=== PATIENT | male | born 1985 | race African-American/Black ===

== ENCOUNTER → 2022-06-07 10:30 | Outpatient (CLI) | payer MEDICAID, SELFPAY | PROVIDERS: PCP Emergency Medicine; Visit Provider Surgery | DX: U07.1 COVID-19 (principal) | CPT/HCPCS: C9803; U0003; U0005 ==

== ENCOUNTER 2022-07-21 10:36 | Day surgery (SDC) | payer MEDICAID, SELFPAY ==
[2022-07-21] VITALS (7 sets, daily range): BP systolic 104–136; BP diastolic 65–84; PULSE 67–101; RESP 18; TEMP 36.1–36.6; O2SAT 94–98; BMI 29.9
[2022-07-21 11:17] LABS: POC Glucose,Bedside 85 (70-110)
--- NOTE | 2022-07-21 11:17 | EXP.ANES.CKL ---
[facility] Medical History Constipation Diabetes mellitus, type 2 Schizophrenia Surgical History (Updated 07/21/22 @ 11:00 by Ambar Ramirez RN) No significant past surgical history Family History Other No significant family history Social History (Updated 07/21/22 @ 11:02 by Ambar Ramirez RN) Smoking Status: Current some day smoker alcohol intake: never substance use type: denies use current occupational status: disabled Travel in the last 8 weeks: None detention: Yes [facility] Anesthesia Checklist Patient Identification Patient Identification: Arm Band and Family Structural Data Admitted From: Home Planned Operative Procedure/s: colonoscopy Consent for Planned Operative Procedure(s) Verified: Yes Verified Documents: Surgical Consent NPO Status Verified Time NPO: 00:00 Additional verifications Fingerstick Blood Glucose: 85 Patient : No Anesthesia Reactions: No Hx Blood Transfusions: No Blood Transfusion Reaction: No Cephalosporin Allergy: No Previous Colonoscopy: Yes Airway Assessment C-Spine Mobility Assessed: Yes TMJ Mobility Assessed: Yes Dentition: Good Dentition Neurological Assessment Level of Consciousness: Awake, Alert, Appropriate and Follows Commands Hx Seizures: No Numbness or tingling in extremities: No Genitourinary Assessment 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 Most information came from mother of patient.
--- NOTE | 2022-07-21 12:06 | HMH.SCOPE ---
Procedure: Date: 07/21/22 Patient Date of :: 1985 Procedure Performed:: Colonoscopy Indications:: Abdominal pain Chronic constipation Screening Performing Provider:: Chencho Herman MD Referring Provider:: . Sedation:: Monitored anesthesia care Procedure:: After informed consent was obtained the patient was taken to the endoscopy suite. Sedation ensued after the patient was transferred to the left lateral decubitus position. Pulse, blood pressure, and oxygen saturation were monitored throughout the procedure. Digital rectal exam revealed no significant abnormality. The colonoscope was placed in position. The entire colon was evaluated. The colonoscope was carefully removed and the patient was transferred to recovery in stable condition. Please see findings and specimens below for detail. Findings:: Bowel preparation moderate Specimens:: none Recommendations:: Likely repeat colonoscopy in 5-10 years (unless performed by gastroenterology) Possible gastroenterology consultation with regard to chronic abdominal pain and constipation (possible irritable bowel syndrome) Complications:: No immediate Estimated blood obtained (mL): 0
== END 2022-07-21 13:08 | disposition home or self-care (01) ==
PROVIDERS: PCP Emergency Medicine; Visit Provider Surgery
PROC: 0DJD8ZZ Inspection of Lower Intestinal Tract, Via Natural or Artificial Opening Endoscopic (ICD-10-PCS; CPT 45378; principal; 2022-07-21 12:00)
DX: R10.9 Unspecified abdominal pain (principal); K59.09 Other constipation; Z72.0 Tobacco use; E11.9 Type 2 diabetes mellitus without complications
CPT/HCPCS: 45378; 82962; J2704

== ENCOUNTER 2023-03-20 16:43 | Emergency (ER) | payer MEDICAID, SELFPAY ==
[2023-03-20 16:44] VITALS: BP 131/99; PULSE 113; RESP 18; TEMP 36.9; O2SAT 98; BMI 32.5
--- NOTE | 2023-03-20 16:52 | PC.NURSE ---
called [facility] staff to notify them that pt had walked to the hospital. States she did not know pt had walked up there. Pt reporting sore throat and wanting to be seen by a doctor. Notified [facility] staff that pt states she would like a ride home. Staff member states she is the only person there at this time, he walked up there he can walk back . Notified primary nurse of conversation
--- NOTE | 2023-03-20 16:52 | HMH.EDGENADL ---
Discharge Plan Disposition Patient Disposition: Home, Self-Care Prescriptions Prescriptions: No Action benztropine 0.5 MG tablet 0.5 mg PO BID divalproex 500 MG tablet,delayed release (DR/EC) 500 mg PO BID risperidone 2 MG tablet 2 mg PO BID metformin 500 MG tablet extended release 24 hr 500 mg PO HS paliperidone palm (6-month) 1,560 MG/5 ML syringe 1,560 mg IM MONTHLY polyethylene glycol 3350 [Miralax] 17 gram Powder In Packet 17 g PO DAILY Referrals Follow up/Referrals: Ruben Gómez MD [Primary Care Provider] - See instructions Activity Restrictions/Add. Instructions Additional Instructions/Restrictions: You may take [id number] Tylenol or ibuprofen as needed for your symptoms. Clinical Impressions Clinical Impression: Pharyngitis Discharge ED Provider: Mauri France General Adult HPI General Chief complaint: PAIN Stated complaint: sore throat Time Seen by Provider: 03/20/23 16:52 History of Present Illness HPI narrative: Patient is a 37-year-old male resident of [place] presenting today with sore throat and asking for a ride to [place]. States that his sore throat is been going on for the last week he has had somewhat decreased p.o. food and liquid intake and had 1 episode of vomiting yesterday but has been able to drink fluids without difficulty today. Has had not had a fever has no other symptoms he states. Specifically just asks for throat spray and a ride and he wants nothing else. Related Data Home Medications Medication Instructions Recorded Confirmed benztropine 0.5 mg tablet 0.5 mg PO BID sleep 06/05/22 07/29/22 divalproex 500 mg tablet,delayed 500 mg PO BID seiz 06/05/22 07/29/22 release metformin 500 mg tablet,extended 500 mg PO HS Diabetes 06/05/22 07/29/22 release 24 hr paliperidone palm (6-month) 1,560 1,560 mg IM MONTHLY . 06/05/22 07/29/22 mg/5 mL intramuscular syringe risperidone 2 mg tablet 2 mg PO BID mood 06/05/22 07/29/22 polyethylene glycol 3350 17 gram 17 g PO DAILY bowels 07/21/22 07/29/22 oral powder packet (Miralax) Allergies Allergy/AdvReac Type Severity Reaction Status Date / Time No Known Allergies Allergy Verified 07/29/22 14:58 [facility] Disclaimer: The information contained in this section may have been updated after the patient was seen, as this information can be updated by other users. Medical History (Updated 03/20/23 @ 16:57 by Mauri France MD) Constipation Diabetes mellitus, type 2 Schizophrenia Surgical History (Updated 07/29/22 @ 14:59 by LENNOX Murphy) History of colonoscopy No significant past surgical history Family History Other No significant family history Social History Smoking Status: Current every day smoker alcohol intake: never substance use type: denies use current occupational status: disabled Travel in the last 8 weeks: None alf: Yes ROS Obtained: Yes All systems reviewed & no additional complaints except as documented Physical Exam General General appearance: alert ENT ENT exam: Absent normal oropharynx (Posterior pharynx is mildly erythematous no exudates tonsillar asymmetry difficulty breathing or trismus or ulcerations) Neck Neck exam: Present full ROM; Absent tenderness or meningismus Respiratory Respiratory exam: Present normal lung sounds bilaterally; Absent respiratory distress or wheezes Cardiovascular Cardiovascular exam: Present regular rate; Absent bradycardia Neurological Exam Neurological exam: Present alert and oriented X3 Medical Decision Making Javier Inquiry Pt receiving controlled substance: No Vital Signs: 03/20/23 16:44 03/20/23 17:00 Temperature 98.5 F Temperature Source Oral Pulse Rate 110 H Pulse Rate [Right] 113 H Respiratory Rate 18 20 Blood Press
[2023-03-20 17:00] VITALS: BP 135/85; PULSE 110; RESP 20; O2SAT 97
[2023-03-20 17:07] LABS: Strep Scrn Group A (Rapid) Negative (Negative)
[2023-03-20 17:25] VITALS: BP 135/85; PULSE 110; RESP 20; TEMP 36.9; O2SAT 98
--- NOTE | 2023-03-20 17:28 | PC.NURSE ---
pt sitting out in lobby, notified pt we are calling to get him a ride back to [facility]. Have spoke with reynaldo states she will come to get pt.
== END 2023-03-20 17:21 | disposition home or self-care (01) ==
PROVIDERS: Emergency Provider Student in an Organized Health Care Education/Training Program; PCP Emergency Medicine
DX: J02.9 Acute pharyngitis, unspecified (principal); E11.9 Type 2 diabetes mellitus without complications; F20.9 Schizophrenia, unspecified; F17.200 Nicotine dependence, unspecified, uncomplicated
CPT/HCPCS: 87430; 99283; 99284

== ENCOUNTER 2023-09-18 14:26 | Emergency (ER) | payer MEDICAID, SELFPAY ==
[2023-09-18 14:27] VITALS: BP 149/94; PULSE 122; RESP 22; TEMP 36.8; O2SAT 98; BMI 33.9
--- NOTE | 2023-09-18 14:35 | HMH.EDGENADL ---
Discharge Plan Disposition Patient Disposition: Home, Self-Care Chief Complaint: Upper Respiratory Infection Prescriptions Prescriptions: No Action benztropine 0.5 MG tablet 0.5 mg PO BID divalproex 500 MG tablet,delayed release (DR/EC) 500 mg PO BID risperidone 2 MG tablet 2 mg PO BID metformin 500 MG tablet extended release 24 hr 500 mg PO HS paliperidone palm (6 month) 1,560 MG/5 ML syringe 1,560 mg IM MONTHLY polyethylene glycol 3350 [Miralax] 17 gram Powder In Packet 17 g PO DAILY Referrals Follow up/Referrals: John Masrhall DO [Primary Care Provider] - See instructions Activity Restrictions/Add. Instructions Additional Instructions/Restrictions: Please drink plenty of fluids take Tylenol and ibuprofen as needed for your pain or fever. Return with shortness of breath or any other concerns. Clinical Impressions Clinical Impression: Upper respiratory infection Instructions Patient Instructions: DI for Acute Bronchitis Discharge ED Provider: Eulogio Strauss General Adult HPI <Eulogio Strauss MD - Last Filed: 09/18/23 15:15> General Chief complaint: Upper Respiratory Infection Stated complaint: cough Time Seen by Provider: 09/18/23 14:35 History of Present Illness HPI narrative: 38-year-old male, history of schizophrenia on multiple medications presents with cough and sore throat. He is a very poor historian. He walked here from his assisted living facility. Reports cough has been present for the last few days. He reports mild sore throat. He denies any significant shortness of breath. He denies any recent fever or illness. Related Data Home Medications Medication Instructions Recorded Confirmed benztropine 0.5 mg tablet 0.5 mg PO BID sleep 06/05/22 09/18/23 divalproex 500 mg tablet,delayed 500 mg PO BID seiz 06/05/22 09/18/23 release metformin 500 mg tablet,extended 500 mg PO HS Diabetes 06/05/22 09/18/23 release 24 hr paliperidone palm (6 month) 1,560 1,560 mg IM MONTHLY . 06/05/22 09/18/23 mg/5 mL intramuscular syringe risperidone 2 mg tablet 2 mg PO BID mood 06/05/22 09/18/23 polyethylene glycol 3350 17 gram 17 g PO DAILY bowels 07/21/22 09/18/23 oral powder packet (Miralax) Allergies Allergy/AdvReac Type Severity Reaction Status Date / Time No Known Allergies Allergy Verified 07/29/22 14:58 PFSH <Eulogio Strauss MD - Last Filed: 09/18/23 15:15> [facility] Disclaimer: The information contained in this section may have been updated after the patient was seen, as this information can be updated by other users. Medical History (Updated 09/18/23 @ 15:36 by Mauri France MD) Constipation Diabetes mellitus, type 2 Schizophrenia Surgical History (Updated 07/29/22 @ 14:59 by LENNOX Murphy) History of colonoscopy No significant past surgical history Family History Other No significant family history Social History Smoking Status: Current every day smoker alcohol intake: never substance use type: denies use current occupational status: disabled Travel in the last 8 weeks: None halfway: Yes <Eulogio Strauss MD - Last Filed: 09/18/23 15:15> ROS Obtained: Yes All systems reviewed & no additional complaints except as documented Physical Exam <Eulogio Strauss MD - Last Filed: 09/18/23 15:15> General General appearance: alert and in no apparent distress Head Head exam: atraumatic and normocephalic Eye Eye exam: Present normal appearance, PERRL and EOMI ENT ENT exam: Present normal oropharynx and normal external ear exam Neck Neck exam: Present normal inspection and full ROM Chest Chest inspection: Present normal inspection and symmetric chest wall rise; Absent tenderness Respiratory Respiratory exam: Present normal lung sounds bilaterally; Absent respiratory distress C
--- NOTE | 2023-09-18 14:35 | PC.NURSE ---
DR SEXTON AT BEDSIDE
--- NOTE | 2023-09-18 14:51 | XR_ITS ---
PROCEDURE INFORMATION: Exam: XR Chest Exam date and time: 09/18/2023 2:57 PM Age: 38 years old Clinical indication: Cough and dyspnea; Additional info: SOA, cough TECHNIQUE: Imaging protocol: Radiologic exam of the chest. Views: 1 view. Total images: 2 COMPARISON: No relevant prior studies available. FINDINGS: Lungs: See Heart/Mediastinum finding. Pleural spaces: No definite pneumonia pneumothorax as imaged. No pleural effusions. Heart/Mediastinum: Low lung volumes are present, accentuating cardiac size and pulmonary markings. Bones/joints: Unremarkable. IMPRESSION: 1. Low lung volumes are present, accentuating cardiac size and pulmonary markings. 2. No definite pneumonia pneumothorax as imaged. 3. No pleural effusions.
[2023-09-18 14:58] LABS: Coronavirus 19, PCR Not Detected (NotDetected); Influenza A, PCR Not Detected (NotDetected); Influenza B, PCR Not Detected (NotDetected)
--- NOTE | 2023-09-18 15:01 | ECG_ITS ---
APPROVED REPORT Exam: Resting ECG HR:118 bpm ECG Measurements Heart Rate 118 AXES ME 124 P 60 QRSd 93 QRS 115 QT 303 T 1 QTc 373 Conclusion SINUS TACHYCARDIA POSSIBLE RIGHT VENTRICULAR HYPERTROPHY [SOME/ALL OF: PROMINENT R IN V1, LATE TRANSITION, RAD, NISHI, SSS] NONSPECIFIC T-WAVE ABNORMALITY ABNORMAL ECG UNCONFIRMED REPORT Electronically signed by : Rodríguez Casillas MD 09/20/2023 17:41:35
--- NOTE | 2023-09-18 15:12 | PC.NURSE ---
XR AT BEDSIDE
--- NOTE | 2023-09-18 15:37 | PC.NURSE ---
Called [facility] to inform them pt has been d/c and is in need of a ride back to their facility. States their manager wireless will be by to get pt.
[2023-09-18 15:57] VITALS: BP 148/90; PULSE 107; RESP 18; TEMP 36.7; O2SAT 98
== END 2023-09-18 17:00 | disposition home or self-care (01) ==
PROVIDERS: Emergency Provider Emergency Medicine; PCP Internal Medicine
DX: J06.9 Acute upper respiratory infection, unspecified (principal); J02.9 Acute pharyngitis, unspecified; R05.9 Cough, unspecified; F20.9 Schizophrenia, unspecified; E11.9 Type 2 diabetes mellitus without complications; F17.200 Nicotine dependence, unspecified, uncomplicated
CPT/HCPCS: 71045; 87636; 93005; 99284

== ENCOUNTER 2024-01-17 16:33 | Emergency (ER) | payer MEDICAID, SELFPAY ==
[2024-01-17 16:35] VITALS: BP 138/101; PULSE 132; RESP 20; TEMP 36.9; O2SAT 96; BMI 33.1
--- NOTE | 2024-01-17 16:45 | ED_ITS ---
Discharge Plan Disposition Patient Disposition: Home, Self-Care Condition: Good Prescriptions Prescriptions: New ondansetron 4 mg tablet,disintegrating 4 mg PO Q8H PRN (Reason: nausea and vomiting) 4 Days Qty: 12 0RF No Action benztropine 0.5 MG tablet 0.5 mg PO BID divalproex 500 MG tablet,delayed release (DR/EC) 500 mg PO BID risperidone 2 MG tablet 2 mg PO BID metformin 500 MG tablet extended release 24 hr 500 mg PO HS paliperidone palm (6 month) 1,560 MG/5 ML syringe 1,560 mg IM MONTHLY polyethylene glycol 3350 [Miralax] 17 gram Powder In Packet 17 g PO DAILY Referrals Follow up/Referrals: Provider,Referral, MD [Referring] - See instructions Activity Restrictions/Add. Instructions Additional Instructions/Restrictions: You were evaluated in the emergency department today. Please chart picker your prescription for Zofran and take as needed for nausea and vomiting. Take Tylenol and ibuprofen as needed for pain and fevers. Hydrate. Return to the emergency department for new or worsening symptoms. Clinical Impressions Clinical Impression: Acute viral syndrome, Vomiting Instructions Patient Instructions: DI for Diarrhea and Traveler's Diarrhea -- Adult, DI for Viral Syndrome, DI for Nausea -- Adult Discharge ED Provider: Anastasiya Ramos General Adult HPI General Chief complaint: Nausea/Vomiting/Diarrhea Stated complaint: vomiting fever Time Seen by Provider: 01/17/24 16:39 Mode of Arrival: Ambulatory Source of Information: Patient Limitations: No Limitations Description of Symptoms (Recalled from ER Triage Doc. by RN): Patient reports fever, vomiting and shaking since yesterday. History of Present Illness HPI narrative: This patient is a 38-year-old male with psychiatric history as well as history of diabetes, managed on metformin, presenting from [facility] with concern for fevers, sore throat, cough, nausea, and vomiting since yesterday. Patient reports that he is not having any other associated symptoms, such as abdominal pain, changes bowel movements, or other issues. He denies any prior abdominal surgeries. No other concerns or complaints noted at this time. Related Data Home Medications Medication Instructions Recorded Confirmed benztropine 0.5 mg tablet 0.5 mg PO BID sleep 06/05/22 09/18/23 divalproex 500 mg tablet,delayed 500 mg PO BID seiz 06/05/22 09/18/23 release metformin 500 mg tablet,extended 500 mg PO HS Diabetes 06/05/22 09/18/23 release 24 hr paliperidone palm (6 month) 1,560 1,560 mg IM MONTHLY . 06/05/22 09/18/23 mg/5 mL intramuscular syringe risperidone 2 mg tablet 2 mg PO BID mood 06/05/22 09/18/23 polyethylene glycol 3350 17 gram 17 g PO DAILY bowels 07/21/22 09/18/23 oral powder packet (Miralax) Previous Rx's Medication Instructions Recorded ondansetron 4 mg disintegrating 4 mg PO Q8H PRN nausea and 01/17/24 tablet vomiting 4 days #12 tabs Allergies Allergy/AdvReac Type Severity Reaction Status Date / Time No Known Allergies Allergy Verified 07/29/22 14:58 [facility] Disclaimer: The information contained in this section may have been updated after the patient was seen, as this information can be updated by other users. Medical History Constipation Schizophrenia Diabetes mellitus, type 2 Surgical History History of colonoscopy No significant past surgical history Family History Other No significant family history Social History Smoking Status: Unknown if ever smoked alcohol intake: never substance use type: denies use current occupational status: disabled Travel in the last 8 weeks: None residential: Yes ROS Obtained: Yes All systems reviewed & no additional complaints except as documented Physical Exam General General appearance: alert and in no apparent distress Head Head exam: atraumatic and normocephalic Eye Eye exam: Present normal appearance, PERRL and EOMI ENT ENT exam: Present normal exam, normal oropharynx, mucous membranes moist and normal external ear exam Neck Neck exam: Present normal inspection, full ROM and trachea midline; Absent tenderness Chest Chest inspection: Present normal inspection and symmetric chest wall rise; Absent tenderness Respiratory Respiratory exam: Present normal lung sounds bilaterally; Absent respiratory distress, wheezes, stridor or accessory muscle use Cardiovascular Cardiovascular exam: Present regular rate and normal rhythm Abdominal Exam Abdominal exam: Present soft; Absent distention, tenderness or guarding Extremities Exam Extremities exam: Present normal inspection, full ROM and normal capillary refill; Absent tenderness or edema Back Exam Back exam: Present normal inspection and full ROM; Absent tenderness Neurological Exam Neurological exam: Present alert, oriented X3, CN II-XII intact and normal gait; Absent motor sensory deficit Psychiatric Psychiatric exam: Present normal affect and normal mood Skin Skin exam: Present warm and dry Medical Decision Making Medical Records Medical records reviewed: Yes I reviewed the patient's medical records. Javier Inquiry Pt receiving controlled substance: No Vital Signs: 01/17/24 16:35 01/17/24 17:00 01/17/24 18:34 Temperature 98.4 F 97.9 F Temperature Source Oral Oral Pulse Rate 103 H 93 H Pulse Rate [Radial] 132 H Respiratory Rate 20 18 Blood Pressure 126/85 Blood Pressure [Right Arm] 138/101 H Blood Pressure Mean [Right Arm] 113 Blood Pressure Source Automatic Cuff Blood Pressure Source [Right Arm] Automatic Cuff Blood Pressure Position Sitting Blood Pressure Position [Right Arm] Sitting 02 Sat by Pulse Oximetry 96 97 Oxygen Delivery Method Room Air Room Air Lab Data Lab results reviewed: Yes I reviewed the patient's lab results. Lab Results 01/17/24 16:46: SARS-CoV-2 (PCR) Not detected, Influenza A Untype (PCR) Not detected, Influenza Type B (PCR) Not detected, Group A Strep Rapid Negative Orders (Tests/Meds): ED MEDICATIONS Discontinued Medications Generic Name Dose Route Start Last Admin Trade Name Freq PRN Reason Stop Dose Admin Acetaminophen 1,000 mg 01/17/24 16:44 01/17/24 16:49 Acetaminophen 500mg Tab PO 01/17/24 16:45 1,000 mg ONCE ONE Administration Ibuprofen 800 mg 01/17/24 16:44 01/17/24 16:49 Ibuprofen 400 Mg Tablet PO 01/17/24 16:45 800 mg ONCE ONE Administration Ondansetron HCl 8 mg 01/17/24 16:44 01/17/24 16:50 Ondansetron 4mg Odt SL 01/17/24 16:45 8 mg ONCE ONE Administration ORDERS Category Date Time Status Rapid PCR Covid and Flu A/B Stat Lab 01/17/24 16:46 Completed Strep Scrn Group A (Rapid) Stat Lab 01/17/24 16:46 Completed Strep Screen Confirmation Stat Micro 01/17/24 16:46 Received Medical Decision Narrative: In summary, this patient is a 38-year-old male presenting to the Emergency Department for evaluation of sore throat, cough, and nausea and vomiting. Pat ient has no abdominal pain. Differential diagnoses considered include but are not limited to viral syndrome, gastroenteritis, strep pharyngitis, pneumonia, appendicitis, cholecystitis. Ruling out the most morbid conditions drove assessment. On exam, the patient is nontoxic-appearing. He is mildly tachycardic on exam, but otherwise exam is reassuring. He has no abdominal tenderness and no compl aints of abdominal pain. Given this, doubt surgical intra-abdominal pathology. At this time, I feel the patient likely has infectious cause of his symptoms, most likely viral infection. He was swabbed for COVID/flu as well as strep. He was given oral Tylenol, ibuprofen, and Zofran. Will assess the patient's ability to tolerate oral intake. On reassessment, the patient is resting comfortably with normal vital signs on cardiac telemetry. He is tolerating oral intake without difficulty. Abdominal exam is benign. He states he is feeling much better and is ready to go after he gets another Pepsi. At this time, patient was deemed appropriate for discharge. I feel he likely has infectious etiology of his vomiting, such as viral syndrome. Patient was given a prescription for Zofran and instructions for supportive management. Strict return precautions were given and he was discharged after all questions were answered. Critical Care Critical Care Time Critical Care Time: No
[2024-01-17] MEDS: ACETAMINOPHEN 500MG TAB 1000 MG PO (16:49)
[2024-01-17] MEDS: IBUPROFEN 400 MG TABLET 800 MG PO (16:49)
[2024-01-17] MEDS: ONDANSETRON 4MG ODT 8 MG SL (16:50)
[2024-01-17 16:55] LABS: Coronavirus 19, PCR Not Detected (NotDetected); Influenza A, PCR Not Detected (NotDetected); Influenza B, PCR Not Detected (NotDetected)
[2024-01-17 17:00] VITALS: PULSE 103; O2SAT 97
[2024-01-17 17:03] LABS: Strep Scrn Group A (Rapid) Negative (Negative)
[2024-01-17 18:34] VITALS: BP 126/85; PULSE 93; RESP 18; TEMP 36.6; O2SAT 97
--- NOTE | 2024-01-17 18:34 | PC.NURSE ---
Deyanira notified of patient's discharge.
== END 2024-01-17 18:48 | disposition home or self-care (01) ==
PROVIDERS: Emergency Provider Emergency Medicine; PCP Nurse Practitioner Acute Care
DX: R11.2 Nausea with vomiting, unspecified (principal); R50.9 Fever, unspecified; R07.0 Pain in throat; R05.9 Cough, unspecified; B34.9 Viral infection, unspecified; E11.9 Type 2 diabetes mellitus without complications; Z79.84 Long term (current) use of oral hypoglycemic drugs
CPT/HCPCS: 87430; 87636; 99283

== ENCOUNTER 2024-05-24 14:15 | Emergency (ER) | payer MEDICAID, SELFPAY ==
[2024-05-24 14:16] VITALS: BP 113/81; PULSE 122; RESP 18; TEMP 36.7; O2SAT 96; BMI 34.2
--- NOTE | 2024-05-24 14:24 | XR_ITS ---
FINAL REPORT CLINICAL HISTORY: cough, vomiting COMPARISON: None FINDINGS: Two views of the chest were obtained. The heart size and pulmonary vascularity are within normal limits. The mediastinum is normal. No acute pulmonary abnormality is identified. There is no pneumothorax. The bony thorax is intact. IMPRESSION: No active cardiopulmonary disease. Reviewed, Interpreted and Dictated by Ralph Meraz III, MD Transcribed by Erin Parrish Authenticated and [facility]
[2024-05-24] MEDS: ONDANSETRON 4MG ODT 4 MG SL (14:27)
--- NOTE | 2024-05-24 14:27 | ED_ITS ---
Discharge Plan Disposition Patient Disposition: Xfer Other Condition: Good Prescriptions Prescriptions: New ondansetron 4 mg tablet,disintegrating 4 mg PO Q8H PRN (Reason: nausea and vomiting) 4 Days Qty: 12 0RF No Action ondansetron 4 mg tablet,disintegrating 4 mg PO Q8H PRN (Reason: nausea and vomiting) 4 Days Qty: 12 0RF benztropine 0.5 MG tablet 0.5 mg PO BID divalproex 500 MG tablet,delayed release (DR/EC) 500 mg PO BID risperidone 2 MG tablet 2 mg PO BID metformin 500 MG tablet extended release 24 hr 500 mg PO HS paliperidone palm (6 month) 1,560 MG/5 ML syringe 1,560 mg IM MONTHLY polyethylene glycol 3350 [Miralax] 17 gram Powder In Packet 17 g PO DAILY Referrals Follow up/Referrals: Provider,Referral, MD [Primary Care Provider] - See instructions Activity Restrictions/Add. Instructions Additional Instructions/Restrictions: You were evaluated in the emergency department today. Please mixing picker tender your prescription for Zofran and take as needed for nausea and vomiting. Make sure that you stay hydrated. At this time, it is not felt that you need an inhaler, as your breath sounds are good and clear. Please follow-up with your primary care provider. Return to the emergency department for new or worsening symptoms Clinical Impressions Clinical Impression: Vomiting, Cough Instructions Patient Instructions: DI for Shortness of Breath, DI for Vomiting -- Adult Print Language Print Language: [place] Discharge ED Provider: Anastasiya Ramos General Adult HPI General Chief complaint: Shortness of Breath/Dyspnea Stated complaint: SOA, abd pain, vomiting Time Seen by Provider: 05/24/24 14:18 Mode of Arrival: Ambulatory Source of Information: Patient Limitations: No Limitations Description of Symptoms (Recalled from ER Triage Doc. by RN): Patient reports increased shortness of breath since 3 am this morning. Keeps asking for an inhaler. History of Present Illness HPI narrative: This patient is a 38-year-old male with history of schizophrenia and type 2 diabetes on metformin presenting to the emergency department for evaluation with concern that he does not feel well. He walked here from [facility] and states that he is feeling short of breath. He also states that he had a couple episodes of vomiting since this morning. He is requesting an inhaler, but he notes that he is never used an inhaler in the past. No pain anywhere. He is otherwise doing okay. Related Data Home Medications ?Medication ?Instructions ?Recorded ?Confirmed benztropine 0.5 mg tablet 0.5 mg PO BID sleep 06/05/22 09/18/23 divalproex 500 mg tablet,delayed 500 mg PO BID seiz 06/05/22 09/18/23 release metformin 500 mg tablet,extended 500 mg PO HS Diabetes 06/05/22 09/18/23 release 24 hr paliperidone palm (6 month) 1,560 1,560 mg IM MONTHLY . 06/05/22 09/18/23 mg/5 mL intramuscular syringe risperidone 2 mg tablet 2 mg PO BID mood 06/05/22 09/18/23 polyethylene glycol 3350 17 gram 17 g PO DAILY bowels 07/21/22 09/18/23 oral powder packet (Miralax) Previous Rx's ?Medication ?Instructions ?Recorded ondansetron 4 mg disintegrating 4 mg PO Q8H PRN nausea and 01/17/24 tablet vomiting 4 days #12 tabs ondansetron 4 mg disintegrating 4 mg PO Q8H PRN nausea and 05/24/24 tablet vomiting 4 days #12 tabs Allergies Allergy/AdvReac Type Severity Reaction Status Date / Time No Known Allergies Allergy Verified 07/29/22 14:58 [facility] Disclaimer: The information contained in this section may have been updated after the patient was seen, as this information can be updated by other users. Medical History Constipation Schizophrenia Diabetes mellitus, type 2 Surgical History History of colonoscopy No significant past surgical history Family History Other No significant family history Social History Smoking Status: Unknown if ever smoked alcohol intake: never substance use type: denies use current occupational status: disabled Travel in the last 8 weeks: None senior living: Yes ROS Obtained: Yes All systems reviewed & no additional complaints except as documented Physical Exam General General appearance: alert and in no apparent distress Comment: Pleasant, very well-appearing Head Head exam: atraumatic and normocephalic Eye Eye exam: Present normal appearance, PERRL and EOMI ENT ENT exam: Present normal exam, normal oropharynx, mucous membranes moist and normal external ear exam Neck Neck exam: Present normal inspection, full ROM and trachea midline; Absent tenderness Chest Chest inspection: Present normal inspection and symmetric chest wall rise; Absent tenderness Respiratory Respiratory exam: Present normal lung sounds bilaterally; Absent respiratory distress, wheezes, stridor or accessory muscle use Cardiovascular Cardiovascular exam: Present normal rhythm and tachycardia Abdominal Exam Abdominal exam: Present soft; Absent distention, tenderness, guarding, rebound or rigidity Extremities Exam Extremities exam: Present normal inspection, full ROM and normal capillary refill; Absent tenderness or edema Back Exam Back exam: Present normal inspection and full ROM; Absent tenderness Neurological Exam Neurological exam: Present alert, oriented X3, CN II-XII intact and normal gait; Absent motor sensory deficit Psychiatric Psychiatric exam: Present other (childlike affect, pleasant) Skin Skin exam: Present warm and dry Medical Decision Making Medical Records Medical records reviewed: Yes I reviewed the patient's medical records. Javier Inquiry Pt receiving controlled substance: No Vital Signs: 05/24/24 14:16 05/24/24 15:34 Temperature 98.0 F 98.0 F Temperature Source Oral Oral Pulse Rate 107 H Pulse Rate [Radial] 122 H Respiratory Rate 18 20 Blood Pressure 121/89 Blood Pressure [Right Arm] 113/81 Blood Pressure Mean [Right Arm] 91 Blood Pressure Source [Right Arm] Automatic Cuff Blood Pressure Position [Right Arm] Sitting 02 Sat by Pulse Oximetry 96 Oxygen Delivery Method Room Air Room Air Lab Data Lab results reviewed: Yes I reviewed the patient's lab results. Lab Results 05/24/24 14:24: SARS-CoV-2 (PCR) Not detected, Influenza A Untype (PCR) Not detected, Influenza Type B (PCR) Not detected Orders (Tests/Meds): ED MEDICATIONS Discontinued Medications Generic Name Dose Route Start Last Admin Trade Name Freq PRN Reason Stop Dose Admin Ondansetron HCl 4 mg 05/24/24 14:24 05/24/24 14:27 Ondansetron 4mg Odt SL 05/24/24 14:25 4 mg ONCE ONE Administration ORDERS Category Date Time Status CXR 2 view (NOT portable) [XR chest 2V] Stat Exams 05/24/24 14:24 Taken Rapid PCR Covid and Flu A/B Stat Lab 05/24/24 14:24 Completed ECG Data Tracing #1: I reviewed this ECG and interpreted as documented below: Sinus tachycardia with a ventricular rate of [address] changes concerning for ischemia. Normal axis and intervals ECG initial impression date: 05/24/24 ECG initial impression time: 14:37 Medical Decision Narrative: In summary, this patient is a 38-year-old male presenting to the Emergency Department from [facility] for evaluation of cough, feeling unwell, and vomiting. He is requesting an inhaler. Differential diagnoses considered include but are not limited to viral syndrome, pneumonia, asthma, COPD. Ruling out the most morbid conditions drove assessment. It should be noted patient's history includes schizophrenia and type 2 diabetes which may or may not be at goal therapy. This complicates all aspects of care by increasing patient's risk for morbidity. I reviewed patient's past medical records and noted previous evaluations for similar symptoms in the past.. On exam, the patient is very well-appearing. He is very mildly tachycardic but he did just walk a very long ways here. On medical record review, he has been tachycardic on EGD visit, so this is not significantly changed. Vitals are reassuring with an O2 saturation of 100% on room air and he has no increased work of breathing. I considered diagnosis of PE, however I feel that this is unlikely in the absence of risk factors, signs/symptoms of DVT, no pain noted, no hypoxia. Abdominal exam and cardiopulmonary exams are normal. I do not feel that he needs an inhaler, though he is requesting 1, as he has no wheezing or adventitious lung sounds. workup included viral swab, chest x-ray, EKG, fingerstick blood glucose. He was given oral Zofran to assess for symptomatic improvement in his nausea and vomiting. Will reassess him and assess his ability to tolerate oral intake. On reassessment, the patient is resting currently with improved symptoms. He has benign exam again and reassuring vital signs on cardiac telemetry with improvement in heart rate after some rest. I independently interpreted x-ray prior to radiology read and noted no acute focal consolidation, pulmonary edema, or other concerns. Viral swab negative. Blood glucose normal. EKG reassuring. Given this, I feel the patient is appropriate for discharge home with prescription for Zofran to treat likely gastroenteritis. Patient was discharged after all questions were answered. Critical Care Critical Care Time Critical Care Time: No
--- NOTE | 2024-05-24 14:34 | ECG_ITS ---
APPROVED REPORT Exam: Resting ECG HR:102 bpm ECG Measurements Heart Rate 102 AXES ID 142 P 57 QRSd 96 QRS 89 QT 328 T 51 QTc 387 Conclusion SINUS TACHYCARDIA ABNORMAL RHYTHM ECG INTERPRETATION BASED ON A DEFAULT AGE OF 40 YEARS Electronically signed by : ASHLY BOWLES, 05/24/2024 16:08:11
[2024-05-24 14:41] LABS: Coronavirus 19, PCR Not Detected (NotDetected); Influenza A, PCR Not Detected (NotDetected); Influenza B, PCR Not Detected (NotDetected)
[2024-05-24 15:34] VITALS: BP 121/89; PULSE 107; RESP 20; TEMP 36.7; O2SAT 97
== END 2024-05-24 15:36 | disposition other institution (70) ==
PROVIDERS: Emergency Provider Emergency Medicine
DX: R06.02 Shortness of breath (principal); R05.9 Cough, unspecified; R11.10 Vomiting, unspecified; E11.9 Type 2 diabetes mellitus without complications; Z79.84 Long term (current) use of oral hypoglycemic drugs; F20.9 Schizophrenia, unspecified
CPT/HCPCS: 71046; 87636; 93005; 99283; Q0162